=== PATIENT | male | born 1995 | race African-American/Black ===

== ENCOUNTER 2020-03-24 15:22 | Emergency (ER) | payer OTHER ==
[2020-03-24] MEDS ORDERED: DIPHTH,PERTUSS(ACELL),TET 0.5 ML DISP.SYRIN IM ONE (15:25)
[2020-03-24 15:27] VITALS: BP 132/80; PULSE 118; TEMP 100; BMI 21.1
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
[2020-03-24] MEDS ORDERED: LIDOCAINE HCL 1%, 10 MG/ML (50 mL VIAL) SQ ONE (15:46)
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
[2020-03-24] MEDS ORDERED: AMOX TR/POT CLAV 875MG/125MG TABLETS (FP) PO ONE (16:51)
== END 2020-03-24 17:42 | disposition home or self-care (01) ==
LOC: JER 15:22
PROC: 3E023GC Introduction of Other Therapeutic Substance into Muscle, Percutaneous Approach (ICD-10-PCS; principal; 2020-03-24)
PROC: 0HQGXZZ Repair Left Hand Skin, External Approach (ICD-10-PCS; principal; 2020-03-24)
PROC: 3E0234Z Introduction of Serum, Toxoid and Vaccine into Muscle, Percutaneous Approach (ICD-10-PCS; principal; 2020-03-24)
DX: S61.412A Laceration without foreign body of left hand, initial encounter (principal); T76.11XA Adult physical abuse, suspected, initial encounter; W26.8XXA Contact with other sharp object(s), not elsewhere classified, initial encounter; Y04.8XXA Assault by other bodily force, initial encounter
CPT/HCPCS: 90715; 99283-25

== ENCOUNTER 2020-04-05 16:22 | Emergency (ER) | payer OTHER ==
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
[2020-04-05 16:41] VITALS: BP 105/62; PULSE 62; TEMP 97.5; BMI 21.1
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
== END 2020-04-05 17:48 | disposition home or self-care (01) ==
LOC: JERFT 16:22 → JER 16:22 → JERFT 17:48
DX: Z48.02 Encounter for removal of sutures (principal)
CPT/HCPCS: 99282-25